=== PATIENT | female | born 1950 | race Caucasian/White ===

== ENCOUNTER 2024-09-08 16:17 | Emergency (ER) | payer OTHER ==
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
[2024-09-08] MEDS ORDERED: ONDANSETRON 4 MG/2 ML VIAL ONE (17:08)
[2024-09-08] MEDS ORDERED: DICYCLOMINE HCL 10 MG CAP ONE (17:09)
[2024-09-08] MEDS ORDERED: NA CHLORIDE 0.9% 1,000 ML ONE (17:09)
[2024-09-08 17:24] LABS: Absolute Eosinophils 0.1 K/uL (0-0.5); Absolute Lymphocytes (CBC) 1.9 K/uL (0.7-4.9); Absolute Monocytes 0.7 K/uL (0.1-1.3); Absolute Neutrophil 3.2 K/uL (1.8-8.0); Basophils % 0.5 % (0-1.3); Eosinophils % 2.5 % (0-4.4); Hematocrit 38.8 % (36.0-45.0); Hemoglobin 13.9 g/dL (12.0-15.0); Lymphocytes % 32.1 % (15.3-44.8); MCH 31.4 pg (27.0-35.0); MCHC 35.8 g/dL (32.0-36.0); MCV 87.6 fL (80-100); MPV 7.3 fL (7.6-11.3); Monocytes % 11.6 % (3.3-12.3); Neutrophils % 53.3 % (41.7-73.7); Platelets 277 thou/uL (152-406); RBC Red Blood Cell Count 4.43 M/uL (3.86-4.86); Red Cell Distribution Width 13.6 % (12.1-15.2)
[2024-09-08 17:27] LABS: Albumin 3.2 g/dL (3.4-5.0); Albumin/Globulin Ratio 0.8 (1.1-1.8); Anion Gap 9.6 mEq/L (5.0-15.0); Bilirubin Total 1.3 mg/dL (0.2-1.0); Globulin 3.9 g/dL (2.3-3.5); Potassium 3.6 mEq/L (3.5-5.1); Protein, Total 7.1 g/dL (6.4-8.2)
--- NOTE | 2024-09-08 18:27 | RAD REPORT ---
EXAMINATION: CT ABDOMEN AND PELVIS WITH CONTRAST CLINICAL INDICATION: ABD PAIN TECHNIQUE: CT abdomen and pelvis was performed, after the administration of IV contrast, as per [facility]. Axial, sagittal and coronal reconstructions were obtained. One or more of the following dose reduction techniques were used: Automated exposure control, adjustment of the mA and k V according to patient size, and iterative reconstruction. Unless otherwise specified, incidental findings do not require dedicated imaging follow-up. COMPARISON: No prior exam. FINDINGS: LOWER CHEST: Subtle tree-in-bud opacities in both lung bases. 21 mm opacity is present medial right l alexandru base abutting the paraspinal pleura. LIVER: Normal in size and contour. No focal lesion. Cholecystectomy clips. SPLEEN: Normal size. No focal lesion. PANCREAS: No mass, ductal dilation, or june-pancreatic fluid. ADRENALS: Normal; no mass. KIDNEYS: Normal size and contour. No hydronephrosis. GASTROINTESTINAL TRACT: No evidence of free air, significant intra-abdominal free fluid, bowel obstru ction or abscess. Moderate stool is retained throughout the colon. APPENDIX: Appendix not visualized, but no inflammatory changes in region of appendix. LYMPH NODES: No lymphadenopathy. MUSCULOSKELETAL: No acute or suspicious osseous abnormality. ADDITIONAL FINDINGS: Possible left lateral abdominal wall bruising and remote 5 cm hematoma in the robert bcutaneous fat. IMPRESSION: Left abdominal wall findings as detailed. No acute intra-abdominal or pelvic finding.
[2024-09-08 18:35] LABS: Specific Gravity 1.013 (1.005-1.030); Urine Bacteria None Seen /HPF (<20); Urine Bilirubin NEGATIVE (Negative); Urine Blood Negative (Negative); Urine Clarity Turbid (Clear); Urine Color Light-Yellow (Yellow); Urine Culture Reflex Order NOT NEEDED; Urine Glucose NEGATIVE (Negative); Urine Ketones NEGATIVE (Negative); Urine Microscopic Reflex YN ORDER UMIC; Urine Mucus Slight /HPF (None Seen); Urine Nitrite NEGATIVE (Negative); Urine Protein NEGATIVE (Negative); Urine RBC <5 /HPF (None Seen); Urine Urobilinogen Normal (Normal); Urine WBC <5 /HPF (<5); Urine pH 5.5 (5.0-7.0)
--- NOTE | 2024-09-08 19:57 | EDPHYS ---
Physician Documentation [facility] Name: Clary Damon Age: 74 yrs Sex: Female : 1950 Arrival Date: 09/08/2024 Time: 16:17 Bed 24 Private MD: ED Physician Bebo Vidal HPI: 09/08 17:05 This 74 yrs old Female presents to ER via Ambulatory with complaints of Abdominal kb Cramping, Abdominal Pain, Nausea/Vomiting, General Weakness. 17:05 Pt is a 74 year old female who presents for upper abd pain that has been intermittent kb for 2 weeks with nausea, vomiting and diarrhea. Denies fever. States she has been drinking a lot of fluids, but has no appetite so hasn't been eating. States vomiting subsided for a few days, but she vomited again this morning. Denies nausea at this time. Reports abd cramping, but not really pain. . Historical: - Allergies: 16:37 No Known Allergies; db - PMHx: 16:37 Hypertensive disorder; Hypercholesterolemia; db - PSHx: 16:37 Cholecystectomy; Appendectomy; Ligation of fallopian tube; db - Immunization history:: Adult Immunizations unknown. - Infectious Disease History:: Denies. - Social history:: Smoking status: Patient/guardian denies using tobacco, Stopped _ months ago 1. ROS: 17:05 Constitutional: As per HPI kb Exam: 17:05 Constitutional: This is a well developed, well nourished patient who is awake, alert, kb and in no acute distress. Head/Face: Normocephalic, atraumatic. ENT: Moist Mucous membranes Cardiovascular: Regular rate Respiratory: Respirations even and unlabored. No increased work of breathing. Talking in full sentences Skin: Warm, dry with normal turgor. Normal color. MS/ Extremity: Pulses equal, no cyanosis. Neurovascular intact. Full, normal range of motion. Neuro: Awake and alert, GCS 15, oriented to person, place, time, and situation. 17:05 Abdomen/GI: Inspection: abdomen appears normal, Bowel sounds: normal, Palpation: soft, in all quadrants, mild abdominal tenderness, in the right upper quadrant, left upper quadrant and left lower quadrant, Vital Signs: 16:35 BP 129 / 59; Pulse 54; Resp 16; Temp 98.3; Pulse Ox 97% ; Weight 68.04 kg (R); Height 5 db ft. 2 in. ; Pain 5/10; 17:00 BP 116 / 55; Pulse 52; Resp 16; Pulse Ox 96% ; me1 18:00 BP 124 / 64; Pulse 57; Resp 16; Pulse Ox 96% ; me1 19:00 BP 145 / 68; Pulse 64; Resp 16; Pulse Ox 99% ; me1 19:05 BP 131 / 65; Pulse 60; Resp 18; Temp 98(O); Pulse Ox 100% on R/A; Pain 0/10; rg5 19:57 BP 140 / 70; Pulse 60; Resp 16; Temp 98.5; Pulse Ox 96% ; me1 16:35 Body Mass Index 27.44 (68.04 kg, 157.48 cm) db 16:35 Pain Scale: Adult db 19:05 Pain Scale: Adult rg5 Zaire Coma Score: 19:05 Eye Response: spontaneous(4). Motor Response: obeys commands(6). Verbal Response: rg5 oriented(5). Total: 15. MDM: 16:23 Medical Screening Exam initiated 19:55 Differential diagnosis: colitis, gastritis, viral infection, abnormal electrolytes. Data reviewed: vital signs, nurses notes. Historians other than the Patient: Spouse/Significant Other: spouse. Counseling: I had a detailed discussion with the patient and/or guardian regarding the historical points, exam findings, and any diagnostic results supporting the discharge/admit diagnosis, lab results, radiology results, the need for outpatient follow up, a family practitioner, a roll tension tester, to return to the emergency department if symptoms worsen or persist or if there are any questions or concerns that arise at home. 19:56 I considered the following discharge prescriptions or medication management in the emergency department I discussed and recommended Over The Counter medications, Antibiotics: At this time antibiotics are not recommended. 09/08 16:34 Order name: CBC with Diff; Complete Time: 17:27 kb 09/08 16:34 Order name: CMP; Complete Time: 17:30 kb 09/08 16:34 Order name: Lipase; Complete Time: 17:30 kb 09/08 16:34 Order name: Urinalysis w/ reflexes; Complete Time: 18:37 kb 09/08 16:34 Order name: CT Abd/Pelvis - IV Contrast Only; Complete Time: 18:37 kb 09/08 16:34 Order name: IV Saline Lock; Complete Time: 17:02 kb 09/08 16:34 Order name: Labs collected and sent; Complete Time: 17:02 kb Administered Medications: 17:12 Drug: Dicyclomine PO 20 mg PO once Route: PO; me1 19:14 Follow up: Response: No adverse reaction; Pain is decreased me1 17:12 Drug: NS 0.9% IV 1000 ml IV at 1000 ml once; to be given as a bolus over 60 minutes me1 Route: IV; Rate: 1000 ml; Site: left antecubital; 19:14 Follow up: Response: No adverse reaction; IV Status: Completed infusion; IV Intake: me1 1000ml 17:12 Drug: Ondansetron IVP 4 mg IVP once; over 2 minutes Route: IVP; Site: left antecubital; me1 19:14 Follow up: Response: No adverse reaction; Nausea is decreased me1 Disposition: 09/09 16:20 Co-signature as Attending Physician, Bebo Vidal MD I reviewed the patient's care rn provided by the Advanced Practice Provider and agree with the diagnosis and treatment plan. Disposition Summary: 09/08/24 19:56 Discharge Ordered Notes: Location: Home kb Condition: Stable kb Diagnosis - Abdominal pain, Generalized kb - Nausea with vomiting, unspecified kb Followup: kb - With: Emergency Department - When: As needed - Reason: Worsening of condition Followup: kb - With: Private Physician - When: 2 - 3 days - Reason: Recheck today's complaints, Continuance of care, Re-evaluation by your physician Discharge Instructions: - Discharge Summary Sheet kb - Nausea and Vomiting, Adult, [id number] kb - Abdominal Pain, Adult, [id number] kb Forms: - Medication Reconciliation Form kb - Antibiotic Education kb - Prescription Opioid Use kb - Patient Portal Instructions kb - Leadership Thank You Letter kb Prescriptions: - ondansetron 4 mg Oral Tablet,disintegrating - take 1 tablet ORAL route every 6 hours As needed as needed for nausea and kb vomiting; 12 tablet; Refills: 0, Product Selection Permitted - dicyclomine 20 mg Oral tablet - take 1 tablet ORAL route 4 times per day As needed; 20 tablet; Refills: 0, kb Product Selection Permitted Signatures: Dispatcher [employer] Rubin FNP-C SUPERVISOR OF RESEARCH-Ckb Bebo Vidal MD MD rn Ashely Aldridge, RN RN db Ute Goyal RN RN me1
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
[2024-09-08 20:40] VITALS: BP 140/70; TEMP 98.5; O2SAT 96
== END 2024-09-08 20:11 | disposition home or self-care (01) ==
LOC: ER 16:17
DX: R10.84 Generalized abdominal pain (principal); R11.2 Nausea with vomiting, unspecified
CPT/HCPCS: 96361; 85025; 81001; 36415; 83690; 80053; 74177; 96374; 99284; Q9967; J2405; J7030